=== PATIENT | female | born 1975 | race Caucasian/White ===

== ENCOUNTER 2024-03-01 10:42 | Outpatient (CLI) | payer BC | END 2024-03-01 10:43 | disposition home or self-care (01) | LOC: CSHULT 10:42 | PROVIDERS: ATTEND Family Medicine | DX: R59.1 Generalized enlarged lymph nodes (principal) | CPT/HCPCS: 76882; 76999 ==

== ENCOUNTER 2024-04-08 13:16 | Outpatient (CLI) | payer BC | END 2024-04-08 13:17 | disposition home or self-care (01) | LOC: CSHULT 13:16 | PROVIDERS: ATTEND Otolaryngology Plastic Surgery within the Head & Neck | DX: E04.1 Nontoxic single thyroid nodule (principal) | CPT/HCPCS: 76536 ==

== ENCOUNTER 2025-01-14 16:14 | Outpatient (CLI) | payer BC | END 2025-01-14 16:15 | disposition home or self-care (01) | LOC: CSHCT 16:14 | PROVIDERS: ATTEND Otolaryngology Plastic Surgery within the Head & Neck | DX: K11.22 Acute recurrent sialoadenitis (principal); E04.1 Nontoxic single thyroid nodule | CPT/HCPCS: 70490 ==